=== PATIENT | male | born 1980 | race Two or more races ===

== ENCOUNTER 2025-02-28 14:59 | Outpatient (RCR) | payer MEDICAID, SELFPAY ==
--- NOTE | 2025-02-28 16:15 | PT.OIERPT ---
PT OP Initial Eval Patient Information Outpatient Physical Therapy Treatment Date: 02/28/25 Visit Reasons: RT knee pain Medical Diagnosis: Right Knee Pain Treatment Dx #1: Right Knee Pain Start of Care: 02/28/25 Date of Onset: 7 months ago Smoking Status Smoking Status: Never smoker Initial Assessment Subjective: Pt is a 45 y/o male reports of chronic right knee pain (11/08) started 7 months ago. Pt denies of trauma or injury to the knee. Pt notice instability and knee buckling intermittently. Pt has limitation with walking, prolonged driving, stairs, squatting, kneeling, and performing recreational activities. Objective: Right Knee AROM: all motions are WNL Right Knee MMTs: grossly 4-/5 Right Hip MMTs: grossly 3+/5 Special Test (+) Zarina (+) Thessaly (+) ant knee compression test Assessment: Pt demonstrate right knee pain leading to difficulty with ADLs. Pt will attempt physical therapy if pain persist Pt will be refer back to provider for further consultation. Short Term and Rotary Surface [employer]inder Goals 1) Increase right knee MMTs grossly to 4/5 in 6 wks to be able to perform stairs and steps 2) Increase right hip MMTs grossly to 4-/5 in 6 wks to be able to perform recreational activities 3) Decrease knee pain to 2/10 in 6 wks to be able to drive longer than 4 hrs 4) Indep with HEP Treatment Plan 1) Manual Therapy 2) Therapeutic Activities 3) Therapeutic Exercises 4) Modalities (ice, heat) 5) Balance Training Frequency and Duration: 2 x wk for 6 wks Certification Dates: 02/28/25 to 05/30/25 Procedure Charges OP PT Eval Mod Complex 30 minutes: Yes
== END 2025-02-28 23:59 | disposition home or self-care (01) ==
LOC: CPTX 14:59
PROVIDERS: PCP Physician Assistant; Referring Provider Physician Assistant; Visit Provider Physician Assistant
DX: M25.561 Pain in right knee (principal); R26.2 Difficulty in walking, not elsewhere classified; G89.29 Other chronic pain
CPT/HCPCS: 97162

== ENCOUNTER 2025-03-08 14:01 | Outpatient (RCR) | payer MEDICAID, SELFPAY ==
--- NOTE | 2025-03-08 14:28 | PT.ODAYNRPT ---
PT Outpatient Daily Note OP Daily Note Outpatient Physical Therapy Treatment Date: 03/08/25 Visit Reasons: RIGHT KNEE PAIN Subjective: Pt shared that he has good and bad days when it comes to knee pain. Pt lives in a two story house and there are times when knee malou. Objective: Please see flow sheet for ther ex list. Assessment: Interventions completed with minimal pain. Plan: Continue with pOC. Assess response to treatment. Length of Time (minutes) of Treatment: 30 Minutes Procedure Charges Therapeutic Exercise 30 minutes: Yes
--- NOTE | 2025-04-05 09:52 | PT.ODS1RPT ---
PT OP Progress/Discharge Note Date of Service: 04/05/25 Progress Note/DC Note Progress Note/Discharge Note: DC Note Patient Information Visit Reasons: RIGHT KNEE PAIN Service Discharge Date: 04/05/25 Status Assessment: Pt has been seen for 2 visits (eval + 1 visit). Pt last treated on 03/08/25 and has not returned to therapy. Pt has been contact regarding follow up appts without success. At this time Pt will be d/c from care due to non-compliance per attendance policy. Pt did not meet set goals in therapy; thank you for your referrals.
== END 2025-03-31 23:59 | disposition home or self-care (01) ==
LOC: CPTX 14:01
PROVIDERS: PCP Physician Assistant; Referring Provider Physician Assistant; Visit Provider Physician Assistant
DX: M25.561 Pain in right knee (principal); G89.29 Other chronic pain
CPT/HCPCS: 97110